=== PATIENT | male | born 1955 | race Asian ===

== ENCOUNTER 2022-08-22 21:04 | Emergency (ER) | payer MEDICAID, OTHER ==
[~2022-08-22] VITALS: Ht 165.1 cm; Wt 59.0 kg
[2022-08-22 21:21] VITALS: BP_SYST 116
--- NOTE | 2022-08-22 21:24 | NUR ---
PATIENT BROUGHT IN FROM [facility] FOR A GONSLAEZ REMOVAL, PATIENT HAS LICE AND IS PLACED IN PRIVATE ROOM ON CONTACT ISOLATION, REPORT GIVEN TO EFRAIN
--- NOTE | 2022-08-22 22:43 | NUR ---
ER Dr. MARTÍNEZ at bedside examining patient.
--- NOTE | 2022-08-23 00:13 | NUR ---
ER at bedside examining patient.
--- NOTE | 2022-08-23 00:14 | NUR ---
# 16 FR Koehler catheter with use of sterile technique. Immediate return of cc DARK RED urine noted. Bedside drainage bag placed below level of bladder. Urine sample collected and sent to lab. Pt tolerated procedure . Patient arrived with koehler in place, changed DUE TO DR WHEELER Patient unable to toilet self.
[2022-08-23 00:37] LABS: BASOPHILS # (AUTO) 0.1 K/uL (0.0-0.2); BASOPHILS % (AUTO) 0.8 % (0.0-2.0); EOSINOPHILS # (AUTO) 0.7 K/uL (0.0-0.4); EOSINOPHILS % (AUTO) 5.7 % (0.0-4.0); HEMATOCRIT 39.5 % (36-54); HEMOGLOBIN 12.7 g/dL (14.0-18.0); LYMPHOCYTES # (AUTO) 3.9 K/uL (1.0-5.5); LYMPHOCYTES % (AUTO) 31.6 % (20.5-51.5); MEAN CORPUSCULAR HEMOGLOBIN 29 pg (27-31); MEAN CORPUSCULAR HGB CONC 32 % (32-36); MEAN CORPUSCULAR VOLUME 89 fL (79.0-98.0); MONOCYTES % (AUTO) 7.8 % (1.7-9.3); NEUTROPHILS # (AUTO) 6.8 K/uL (1.8-7.7); NEUTROPHILS % (AUTO) 54.1 % (40.0-70.0); PLATELET COUNT (AUTO) 329 K/uL (130-430); RED BLOOD CELL COUNT(AUTO) 4.44 MIL/uL (4.2-6.2); RED CELL DISTRIBUTION WIDTH 14.2 % (9.0-15.0); WHITE BLOOD COUNT (AUTO) 12.5 K/uL (4.8-10.8)
[2022-08-23 00:38] LABS: BILIRUBIN,URINE NEGATIVE (NEGATIVE); BLOOD, URINE 3+ (NEGATIVE); CLARITY/URINE CLOUDY (CLEAR); COLOR,URINE RED (YELLOW); GLUCOSE,URINE NEGATIVE (NEGATIVE); KETONES,URINE NEGATIVE (NEGATIVE); LEUKOCYTE ESTERASE ,URINE 1+ (NEGATIVE); NITRITE, URINE POSITIVE (NEGATIVE); PROTEIN URINE 3+ (NEGATIVE)
[2022-08-23 00:49] LABS: BACTERIA,URINE MODERATE /HPF (None Seen); RBC,URINE >100 /HPF (0-3)
[2022-08-23 00:57] LABS: CALCIUM 8.9 mg/dL (8.4-11.0); CREATININE 1.38 mg/dL (0.55-1.30)
[2022-08-23 01:08] LABS: TOTAL BILIRUBIN 0.3 mg/dL (0.0-1.0)
[2022-08-23] MEDS ORDERED: NITR-85 PO (01:13)
[2022-08-23] MEDS ORDERED: cefTRIAXone 1 GM in LIDOCAINE 1%, 20 ML MDV 2.1 ML IM ONE (01:15)
--- NOTE | 2022-08-23 02:07 | NUR ---
Report given to Alireza at [facility]
[2022-08-23 02:27] VITALS: BP_SYST 132
--- NOTE | 2022-08-23 02:30 | NUR ---
GAVE REPORT TO NOAH ASHTON EMT
--- NOTE | 2022-08-23 02:35 | NUR ---
Patient given written and verbal discharge instructions and verbalizes understanding. ER MD discussed with patient the results and treatment provided. Patient in stable condition. ID arm band removed. Rx of MACROBID given. Patient educated on UTI and to follow up with PMD. Pain Scale . Opportunity for questions provided and answered. Medication side effect fact sheet provided.
== END 2022-08-23 02:20 | disposition home or self-care (01) ==
LOC: SED 21:04
DX: T83.091A Other mechanical complication of indwelling urethral catheter, initial encounter (principal); N39.0 Urinary tract infection, site not specified; Z79.899 Other long term (current) drug therapy
CPT/HCPCS: 99284; 80053; 81000; 85025; 87086; 36415; 51702; 96372; J0696; J2001

== ENCOUNTER 2022-08-23 08:03 | Emergency (ER) | payer MEDICAID, OTHER ==
[~2022-08-23] VITALS: Ht 160 cm; Wt 54.4 kg
[~2022-08-23 08:03] MED LIST: NITR-85 PO
--- NOTE | 2022-08-23 08:20 | NUR ---
PT TRAIGED AND TAKEN TO BED 5. ENDORSED TO [facility]. [facility] BLOOD IN GONSALEZ CATH BAG. PT WAS SEEN IN [facility] ED YESTERDAY FOR MEDICAL CLEARANCE. PT WAS BIB POLICE FOR MEDICAL CLEARANCE AND CAME IN WITH A GONSALEZ IN PLACE. PT PULLED OUT GONSALEZ WHILE AT ED YESTERDAY AND A NEW ONE WAS PLACED. AT THIS TIME PT'S GONSALEZ HAD 600CC URINE WITH DARK RED BLOOD NOTED. PT IS AAOX2. ON R/A. SKIN CDI, DRY, WITH SCATTERED SMALL SCABS AND DIRT ENCRUSTED. PMH: MAJOR DEPRESSIVE DISORDER, HOMELESS.
--- NOTE | 2022-08-23 08:21 | NUR ---
DR. LUJAN AT BEDSIDE TO ASSESS PT.
[2022-08-23 08:25] VITALS: BP_SYST 135
--- NOTE | 2022-08-23 08:25 | NUR ---
MONICA XIONG GLOVE MACHINE OPERATOR AT BEDSIDE FOR ONE TO ONE OBSERVATION.
--- NOTE | 2022-08-23 08:41 | NUR ---
PT TAKEN TO [facility] FOR SHOWER.
--- NOTE | 2022-08-23 09:00 | NUR ---
ASSUMED CARE FROM NURSE. PT STABLE. JUST TOOK A SHOWER AND IN BED EATING BREAKFAST. PT DENIES PAIN AT CURRENT TIME.
[2022-08-23 10:49] VITALS: BP_SYST 134
--- NOTE | 2022-08-23 10:49 | NUR ---
Patient given written and verbal discharge instructions and verbalizes understanding. ER MD LUJAN discussed with patient the results and treatment provided. Patient in stable condition. ID arm band removed. Patient educated on pain management and to follow up with PMD. Pain Scale 0/10. Opportunity for questions provided and answered. Medication side effect fact sheet provided. Letha Jacob staff escorting Patient with BLS transport.
== END 2022-08-23 10:49 ==
LOC: SED 08:03
DX: Z46.6 Encounter for fitting and adjustment of urinary device (principal); Z79.899 Other long term (current) drug therapy
CPT/HCPCS: 99283; J7030